=== PATIENT | male | born 1980 | race Two or more races ===

== ENCOUNTER 2018-09-08 11:04 | Emergency (ER) ==
[2018-09-08 11:10] VITALS: BP 136/68; TEMP 97.2; BMI 24.2
[2018-09-08] MEDS ORDERED: ROCEPHIN IM STA (11:45)
[2018-09-08] MEDS ORDERED: LIDOCAINE HCL 1% SDV IM STA (11:45)
[2018-09-08] MEDS ORDERED: ZITHROMAX PO STA (11:45)
--- NOTE | 2018-09-08 11:50 | ED.PDOC ---
General ED Provider: Dr. LEONARD SOLIS Chief Complaint: Wound Check Stated Complaint: Rash right lower leg chronic not improving on steroid cream Time Seen by Physician: 11:11 (see photos may ward present at all times ) Mode of Arrival: Walk-In Information Source: Patient Exam Limitations: No limitations Nursing and Triage Documentation Reviewed and Agree: Yes Does patient meet sepsis criteria?: No System Inflammatory Response Syndrome: Not Applicable Sepsis Protocol: For patient's 13 years and over: Temp is 96.8 and below OR 101 and greater Pulse >90 BPM Resp >20/minute Acutely Altered Mental Status Are patient's symptoms suggestive of a new infection, such as: -Pneumonia -Skin, Soft Tissue -Endocarditis -UTI -Bone, Joint Infection -Implantable Device -Acute Abdominal Infection -Wound Infection -Meningitis -Blood Stream Catheter Infection -Unknown Review of Systems - Review Of Systems Constitutional: Reports: No symptoms Eyes: Reports: No symptoms Ears, Nose, Mouth, Throat: Reports: No symptoms Respiratory: Reports: No symptoms Cardiac: Reports: No symptoms GI: Reports: No symptoms : Reports: No symptoms Musculoskeletal: Reports: No symptoms Skin: Reports: Rash (see photos) Neurological: Reports: No symptoms Endocrine: Reports: No symptoms Hematologic/Lymphatic: Reports: No symptoms All Other Systems: Reviewed and Negative Past Medical History - Past Medical History Previously Healthy: Yes Endocrine: Reports: None Cardiovascular: Reports: None Respiratory: Reports: None Hematological: Reports: None Gastrointestinal: Reports: None Genitourinary: Reports: None Neuro/Psych: Reports: None Musculoskeletal: Reports: None Cancer: Reports: None - Surgical History General Surgical History: Reports: None - Family History Family History: Reports: None - Social History Smoking Status: Current every day smoker Hx Substance Use: No Alcohol Screening: Occasionally Physical Exam - Physical Exam Appearance: Well-appearing, No pain distress, Well-nourished Eyes: MAINE, EOMI, Conjunctiva clear ENT: Ears normal, Nose normal, Oropharynx normal Respiratory: Airway patent, Breath sounds clear, Breath sounds equal, Respirations nonlabored Cardiovascular: RRR, Pulses normal, No rub, No murmur GI/: Soft, Nontender, No masses, Bowel sounds normal, No Organomegaly Musculoskeletal: Normal strength, ROM intact, No edema, No calf tenderness Skin: Warm, Dry (rash please refer to photos) Neurological: Sensation intact, Motor intact, Reflexes intact, Cranial nerves intact, Alert, Oriented Psychiatric: Affect appropriate, Mood appropriate Critical Care Note - Critical Care Note Total Time (mins): 0 Course - Course Orders, Labs, Meds: Orders Category Date Time Status Azithromycin [Zithromax] MEDS 09/08/18 11:45 Stat 1,000 mg PO ONCE STA Ceftriaxone Sodium [Rocephin] MEDS 09/08/18 11:45 Stat 1 gm IM ONCE STA Lidocaine HCl/Pf [Lidocaine HCl 1% Sdv] MEDS 09/08/18 11:45 Stat 2.1 ml IM ONCE STA Medications Discontinued Medications Generic Name Dose Route Start Last Admin Trade Name Selena PRN Reason Stop Dose Admin Azithromycin 1,000 mg 09/08/18 11:45 Zithromax PO 09/08/18 11:46 ONCE STA Ceftriaxone Sodium 1 gm 09/08/18 11:45 Rocephin IM 09/08/18 11:46 ONCE STA Lidocaine HCl 2.1 ml 09/08/18 11:45 Lidocaine Hcl 1% Sdv IM 09/08/18 11:46 ONCE STA Vital Signs: Temp Pulse Resp BP Pulse Ox 09/08/18 11:04 97.2 F L 78 16 136/68 96 Departure - Departure Time of Disposition: 11:49 Disposition: HOME SELF-CARE Discharge Problem: Rash, skin Instructions: Acute Rash (ED) Condition: Good Pt referred to PMD for follow-up: Yes IPMP verified?: No Additional Instructions: Please call your Family Physician as soon as possible to schedule a follow-up appointment.THIS RASH REQUIRES A BIOPSY TO SEE WHAT IS THE MAIN REASON FOR IT . START OUT YOUR MEDS TOMORROW AND DO SEE YOUR DOCTOR. YOUR ON 2 CLASSES OF ANTIBIOTICS WHICH SHOULD COVER MOST INFECTION BUT, NO ALL OF THEM . Prescriptions: Amoxicillin 500 mg PO Q6HR #30 tablet Ciprofloxacin [Cipro] 500 mg PO BID #14 [email or web address] Allergies/Adverse Reactions: Allergies No Known Allergies Allergy (Verified 09/08/18 11:11) Home Medications: Ambulatory Orders Triamcinolone Acetonide [Triamcinolone Acetonide 0.5% Cream] 1 applic TP BID # 30 cream..g. 06/22/18 Amoxicillin 500 mg PO Q6HR #30 tablet 09/08/18 Ciprofloxacin [Cipro] 500 mg PO BID #14 [email or web address] 09/08/18
== END 2018-09-08 12:30 | disposition home or self-care (01) ==
LOC: ED 11:04
DX: R21 Rash and other nonspecific skin eruption (principal); Z72.0 Tobacco use
CPT/HCPCS: 96372; 99282